=== PATIENT | male | born 1950 ===

== ENCOUNTER 2022-07-17 09:44 | Observation (INO) | payer OTHER ==
[2022-07-17] VITALS (7 sets, daily range): BP systolic 114–179; BP diastolic 68–90
[~2022-07-17] VITALS: Ht 172.7 cm; Wt 101.0 kg
--- NOTE | 2022-07-17 09:59 | NUR ---
PT AMBULATES TO ROOM 8, STEADY GAIT, ACCOMPANIED BY THE GUARD FROM [facility]
--- NOTE | 2022-07-17 10:00 | NUR ---
SWALLOW STUDY PERFOMRED, PT HAS STRONG COUGH, SPEECH AND SWALLOW WITHOUT ISSUE.
--- NOTE | 2022-07-17 10:30 | NUR ---
TELESTROKE PERORMED, DR MACIAS SAW PT.
[2022-07-17 10:36] LABS: GFR FOR AFR.AMER. > 60 ML/MIN (>=60 (CALC)); GFR OTHER RACES > 60 ML/MIN (>=60 (CALC))
[2022-07-17 10:38] LABS: HEMATOCRIT 41.7 % (39.0-50.0); HEMOGLOBIN 13.8 g/dl (14.0-18.0); IMMATURE GRANULOCYTES 0.1 % (0.0-5.0); MEAN CELL VOLUME 89.3 fL CALC (80.0-100.0); MEAN CORPUSCULAR HGB 29.6 pG CALC (26.0-32.0); MEAN CORPUSCULAR HGB CONC 33.1 g/dL CAL (32.0-36.0); NEUT# 6.64 thou/uL (1.82-7.42); RED BLOOD COUNT 4.67 mill/uL (4.70-6.10)
[2022-07-17 10:42] LABS: ALBUMIN 4.6 g/dL (3.2-5.0); ALKALINE PHOSPHATASE 70 u/l (38-126); ANION GAP 14 (6-22 (CALC)); BILIRUBIN, TOTAL 0.4 mg/dL (0.0-1.4); BUN 18 mg/dL (8-23); BUN/CREATININE RATIO 22 (12-20 (CALC)); CARBON DIOXIDE 25 mmol/l (22-30); CHLORIDE 100 mmol/l (95-108); CREATININE 0.8 mg/dL (0.7-1.3); GFR FOR AFR.AMER. > 60 ML/MIN (>=60 (CALC)); GFR OTHER RACES > 60 ML/MIN (>=60 (CALC)); INTERNATIONAL NORMALIZED RATIO 1.1 RATIO (0.7-1.3); POTASSIUM 4.8 mmol/l (3.5-5.1); PROTHROMBIN TIME 10.8 SECONDS (9.0-12.5); SGOT/AST 27 u/l (19-48); SODIUM 135 mmol/l (137-146)
--- NOTE | 2022-07-17 11:00 | NUR ---
Reassessment of patient completed. No distress noted.
[2022-07-17 11:29] LABS: URINE BILIRUBIN - DIPSTICK NEGATIVE (NEGATIVE); URINE BLOOD DIPSTICK NEGATIVE (NEGATIVE); URINE COLOR YELLOW; URINE GLUCOSE - DIPSTICK 250 mg/dL (NEGATIVE); URINE KETONE NEGATIVE (NEGATIVE); URINE LEUK ESTERASE NEGATIVE (NEGATIVE); URINE PROTEIN - DIPSTICK NEGATIVE (NEG-TRACE); URINE UROBILINOGEN - DIPSTICK 0.2 E.U./dL (0.2)
[2022-07-17 11:30] LABS: URINE NITRITE - DIPSTICK NEGATIVE (Negative)
--- NOTE | 2022-07-17 12:00 | NUR ---
Reassessment of patient completed. No distress noted.
--- NOTE | 2022-07-17 13:00 | NUR ---
Reassessment of patient completed. No distress noted.
--- NOTE | 2022-07-17 14:00 | NUR ---
Reassessment of patient completed. No distress noted.
[2022-07-17] MEDS ORDERED: METFORMIN HYD1000 MG PO ×2 (14:08)
[2022-07-17] MEDS ORDERED: NORVASC10 M1 PO (14:09)
[2022-07-17] MEDS ORDERED: OMEPRAZOLE20 MG PO (14:09)
[2022-07-17] MEDS ORDERED: MELOXICAM7.5 MG PO (14:10)
[2022-07-17] MEDS ORDERED: LISINOPRIL10 MG PO (14:10)
[2022-07-17] MEDS ORDERED: PIOGLITAZONE HY15 MG PO (14:11)
[2022-07-17] MEDS ORDERED: CITALOPRAM40 MG PO (14:12)
[2022-07-17] MEDS ORDERED: TRAZODONE50 MG PO (14:12)
[2022-07-17] MEDS ORDERED: GLIPIZIDE ER5 MG PO (14:13)
[2022-07-17] MEDS ORDERED: HUMULIN R500 UNIT/M (14:14)
--- NOTE | 2022-07-17 15:00 | NUR ---
Reassessment of patient completed. No distress noted.
--- NOTE | 2022-07-17 17:10 | NUR ---
PT HAS BEEN TRANSPORTED TO UNIT BY RADIOLOGY STAFF AND TWO GUARDS. PT IS ABLE TO AMBULATE TO SCALE AND BED WITH SHACKLES ATTACHED TO ANKLES, PT IS NOTICED TO GRABBING AT [facility]. PT STATES HE DOESN'T USE A CANE OR WALKER OR ANY CHRONIC DISEASE MANAGER DEVICES AT FACILITY AND STATES HE "DOESN'T NEED ONE, HE GETS AROUND JUST FINE." PT WOULD LIKE TO KEEP PANTS ON, PT IS SHACKLED TO LEFT ANKLE. PT HAS BEEN PLACED ON FALL PRECAUTIONS AND HAS BEEN EDUCATED T CALL IF IN NEED OF GETTING OOB, GUARDS NEARBY STATED THEY WILL ASSIST PT TO BATHROOM. ADVISED ALL STAFF WILL NEED TO BE CALLED. PT IS A&OX3, ANSWERED ALL QUESTIONS APPTROPRIATELY. HOWEVER, PT STATES HE IS FORGETFUL AND HIS MOTHER HAD DEMENTIA PT IS A POOR HISTORIAN. DENIES ER HX OF SBAR. PT HAS BEEN ORIENTED TO ROOM. PT ASSESSMENT DONE. VSS. AND WILL CONTINUE TO MONITOR.
--- NOTE | 2022-07-17 20:40 | NUR ---
PT IN BED WATCHING TV, DENIES PAIN OR DISCOFORT AT THIS TIME. NO S/S OF DISTRESS NOTED. GUARD AT BEDSIDE. ASSESSMENT COMPLETED. CALL LIGHT IN REACH AND BED IN LOWEST POSITION.
--- NOTE | 2022-07-17 20:59 | NUR ---
pt keeps taking tele moniter off, eric been in there 3 times and let him know how important it was for him to keep it on, he agreed but is still taking it off. nurse was notified
--- NOTE | 2022-07-17 23:48 | NUR ---
PT KEEP TAKING TELE OFF PT EDUCAYED OM THE IMPORTACE TO KEEP IT ON. PT STATES I DON'T NEED IT. NOTIFIED AND IS IK TO DC TELE.
--- NOTE | 2022-07-18 00:15 | NUR ---
PT IN BED WATCHING TV. DENIES PAIN OR DISCOMFORT AT THIS TIME. NO S/S OF DISTRESS NOTED. CALL LIGHT IN REACH AND BED IN LOWEST POSITION. GUARDS AT BED SIDE.
[2022-07-18 03:29] VITALS: BP 163/76
--- NOTE | 2022-07-18 04:12 | NUR ---
PT IN BED RESTING WITH EYES CLOSED BREATHING EVEN AND UNLABORED. NO S/S OF DISTRESS NOTED. CALL LIGHT IN REACH AND BED IN LOWEST POSITION. GUARDS AT BED SIDE.
--- NOTE | 2022-07-18 06:40 | NUR ---
PT REMOVE IV. WHEN ASK WHY HE REMOVE IV PT STATES "I DIDN'T REMOVE IT"
[2022-07-18 07:03] VITALS: BP 154/71
[2022-07-18 07:35] LABS: CHOLESTEROL HDL RATIO 6.1 (<4.4 (CALC))
--- NOTE | 2022-07-18 07:45 | NUR ---
PT IS SITTING UP IN BED, PT A&OX3, PT HAS NO C/O AT THIS TIME, VS ASSESSED, PT IS ON RA, PT HAD REMOVED IV FROM PM SHIFT, PT STATES HE IS READY TO LEAVE. PT FOLLOWS COMMANDS AND HAS LEFT SIDED WKNESS, PT EXP TREMORS TO HANDS AND STATES HE HAS ALWAYS HAD THEM AND THEY COME AND GO. PT IS ON FALL PRECAUTIONS, PT HAS SHACKLE ATTACHED TO LEFT ANKLE, TWO GUARDS ARE NEARBY, PT HAS CALL LIGHT AND IS ABLE TO MAkE HIS KNOWN. WILL CONTINUE TO MONITOR.
--- NOTE | 2022-07-18 12:16 | NUR ---
PT IS SITTING UP IN BED WATCHING TV, PT HAS REFUSED HIS INSULIN AND PT STATES HE IS NOT A DIABTEIC. PT STATES HE IS READY TO LEAVE. WILL INFORM DR. PT HAS NO CHANGE TO ASSESSMENT, CALL LIGHT IS NEAR AND WILL CONTINUE TO MONITOR.
[2022-07-18] MEDS ORDERED: ADLT ASA LOW81 MG PO (12:54)
[2022-07-18] MEDS ORDERED: LIPITOR40 M1 PO (13:01)
[2022-07-18 19:00] VITALS: BP 154/71
== END 2022-07-18 15:00 | disposition designated cancer center or children's hospital (05) | DRG 69 ==
LOC: ED 09:44 → ED-I 12:35 → ED 12:54 → ED-I 12:55 → MS2 16:02
PROVIDERS: Family Medicine; ADMIT Internal Medicine; ATTEND Internal Medicine
DX: G45.9 Transient cerebral ischemic attack, unspecified (principal); I10 Essential (primary) hypertension; E11.9 Type 2 diabetes mellitus without complications; F40.240 Claustrophobia; F32.A Depression, unspecified; Z79.84 Long term (current) use of oral hypoglycemic drugs; Z79.4 Long term (current) use of insulin
CPT/HCPCS: G0378; Q9967